=== PATIENT | female | born 1930 | race Caucasian/White ===

== ENCOUNTER → 2017-02-26 | Outpatient (CLI) | payer OTHER ==
[~2017-02-26] MED LIST: ASPCH81; LISI20TA PO; SITA100T3 PO; [UNRECOGNIZED DRUG - CODE] PO; insulin
--- NOTE | 2017-02-26 13:04 | DIAGNOSTIC IMAGING REPORT ---
CHEST 2 VIEWS ROUTINE CLINICAL HISTORY: 86 years-old Female presenting with WHEEZING. TECHNIQUE: PA and lateral views of the chest were obtained. COMPARISON: 08/31/2013. FINDINGS: Atherosclerosis of aortic arch. Cardiac silhouette top normal in size, unchanged. Mild hyperinflation, unchanged. Prominence of lung markings similar to prior exam. Bronchial wall thickening suggested. No new focal infiltrate. No pleural effusion or pneumothorax. Degenerative changes of the thoracic spine. Upper abdomen normal. IMPRESSION: 1. Hyperinflation and bronchial wall thickening could suggest air trapping with reactive airways disease. No focal infiltrate to suggest pneumonia. The appearance is overall similar to prior exam. Electronically signed by: Fredo Virgen M.D. 02/26/2017 1:03 PM Dictated Date/Time: 02/26/2017 1:01 PM
== END | disposition home or self-care (01) ==
LOC: C.RAD 12:41
PROVIDERS: ATTEND Physician Assistant
DX: R06.2 Wheezing (principal)

== ENCOUNTER 2019-08-07 18:33 | Inpatient (IN) ==
--- NOTE | 2019-08-07 18:54 | Emergency Department Note ---
ED Provider Note NAME: YANELY GALAN AGE: 89 SEX: F : 1930 ARRIVES VIA: Walk-In INFORMANT: Patient and daughter ED PROVIDER(S): Soham Aragon DO CHIEF COMPLAINT: Shortness of breath HPI: Patient is an 89-year-old female who presents the ER for fall. Patient was sitting getting washed by her and fell backwards from a seated position in the bathtub. She hit her head. She denies any loss consciousness. She does take Eliquis. She has not missed any doses. Patient complains of a persistent headache. She also has left hip pain. She complains of right shoulder and lower back pain both of which have been present prior to the fall. She has been placed on baclofen recently for that. She denies any weakness or numbness in the arms or legs. No dysuria urgency or frequency. She does admit to a clear p roductive cough which is been persistent since April. This is been unchanged. ROS: See above HPI for pertinent positives & negatives. A total of 10 systems reviewed and were otherwise negative. PAST MEDICAL HISTORY:See Below PAST SURGICAL HISTORY:See Below FAMILY HISTORY:See Below SOCIAL HISTORY:See Below HOME MEDICATIONS:See Below ALLERGIES:See Below VITALS:See Below PHYSICAL EXAMINATION: GENERAL: Sitting up in bed, ill-appearing, talking in full sentences EYE EXAM: normal conjunctiva. OROPHARYNX: no exudate, no erythema, lips, buccal mucosa, and tongue normal and mucous membranes are moist NECK: supple, no nuchal rigidity, no adenopathy, non-tender LUNGS: Wheezing bilaterally. Normal chest wall mechanics HEART: no murmurs, S1 normal and S2 normal ABDOMEN: abdomen soft, non-tender, normo-active bowel sounds, no masses, no rebound or guarding. BACK: Back is symmetrical on inspection and there is no deformity, mild tenderness in the lower lumbar. PELVIS: Stable to compression anteriorly and posteriorly SKIN: no rashes and no bruising UPPER EXTREMITIES: Pain with range of motion of right shoulder. Otherwise full active and passive range of motion of right elbow wrist as well as left shoulder elbow and wrist. LOWER EXTREMITIES: Full active and passive range of motion of all extremities with minimal tenderness in the left hip. NEURO EXAM: Normal sensorium, cranial nerves II-XII grossly intact, normal speech, no gross weakness of arms, no gross weakness of legs. MEDICAL DECISION MAKING: Patient is an 89-year-old female with a past medical history of A. segundo on a NOAC with CKD and diabetes that presents the ER for mechanical fall. She also admits to some shortness of breath. IV was established blood work was obtained. She was found to be hypoxic at 83%. She was placed on 4 L oxygen mask. This came up to 98%. Labs show a leukocytosis of 25,000. No significant anemia. Do favor the leukocytosis secondary to recent steroids which were started. She was also recently started on baclofen due to right shoulder pain and lower back pa in. INR at 1.2. BMP with a creatinine 1.5. Glucose was elevated 216 favor consistent with steroids. Bilirubin LFTs was unremarkable. Troponin was elevated 0.08 and I favor this is related to the hypoxia. proBNP was elevated at 8000. Influenza was unremarkable. EKG was nondiagnostic. Chest x-ray with pulmonary edema and a pleural effusion. She was given IV Lasix. Question mobile infiltrate per radiology and consequently she was given a dose of Levaquin. CT head and cervical spine showed no acute pathologies. CT of the cervical spine did show a possible nerve sheath tumor. I did order x-rays of lumbar spine and shoulder although this pain has been there for several days and was not related to the fall. Did discuss with [place] hospitalist for further evaluation. Triage Nursing notes reviewed. Prior medical records reviewed Vital Signs: reviewed and remarkable for hypoxia Differential diagnosis: Differential diagnoses include major intracranial, cervical, spinal, thoracic, abdominal, pelvic and neurologic injury. Fracture, contusion, sprain, strain, laceration, abrasions included as well. Differential diagnoses includes but is not limited to pneumonia, bronchitis, COPD/Asthma exacerbation, pneumothorax, pulmonary embolism, congestive heart failure, acute coronary syndrome ER treatment provided: See below Diagnostics interpreted by me: ECG: Sinus rhythm rate of 66 Normal axis No PVCs Normal QTC Cardiac Monitoring: Sinus rhythm rate of 71 Laboratory studies: As stated above and show below. Imaging studies: Chest x-ray portable AP upright one view shows pulmonary edema. No pneumothorax. X-ray of the pelvis and left hip shows no fractures or dislocation. CT of the head and cervical spine show no acute fractures or bleeds. Does she have a nerve sheath tumor. Consultation(s): Discussed with Dr. Shaikh ED COURSE: Procedures: none Critical Care: I have personally spent 35 minutes of critical care time in the direct management of this patient. This includes bedside care, interpretation of diagnostic studies, and testing, discussion with consultants, patient, and family members, and other required patient management activities. This 35 min utes is in excess of all separately billable procedures. Impression & Plan Hypoxia, CHF (congestive heart failure), Elevated troponin Past Med/Surg History Social History Communication Ability: Effective Visual Impairment: Partially Limited Beliefs That Will Affect Care: None marital status: Current Living Situation: Family Feels Safe at Home: Yes Smoking Status: Never smoker Number of Years Since Quit: 15 ; Hx Alcohol Use: No Hx Substance Use: No Results & Data Vital Signs Vital Signs - 24 hr 08/07/19 18:34 08/07/19 18:48 08/07/19 20:33 Temperature 36.7 C Temperature Source Oral Pulse Rate 68 Pulse Rate [Apical] 65 Pulse Rhythm Regular Pulse Rhythm [Apical] Regular Pulse Strength Normal Pulse Strength [Apical] Normal Respiratory Rate 24 22 Respiratory Effort / Characteristics Non-Labored Spontaneous Non-Labored Spontaneous Respiratory Depth Normal Normal Respiratory Pattern Regular Regular Blood Pressure 137/62 Blood Pressure [Right Arm] 138/63 Blood Pressure Mean 87 Blood Pressure Mean [Right Arm] 88 Blood Pressure Position [Right Arm] Lying Pulse Oximetry 85 L 83 L 93 Oxygen Delivery Method Room Air Room Air Oxymask Nasal Cannula Oxygen Flow Rate 0 3 Sepsis Recent Fever Within 48 Hours No Sepsis Action Taken by Nursing No Action Required Oxygen Flow Rate - Titration 7 Pulse Oximetry Post Tiitration 98 Laboratory Data Result diagrams: 08/07/19 19:01 08/07/19 19:01 Lab Results 08/07/19 08/07/19 08/07/19 Range/Units 19:01 19:01 19:01 WBC 25.11 H (4.8-10.8) K/uL RBC 4.66 (4.2-5.4) M/uL Hgb 11.8 L (12.0-16.0) g/dL Hct 37.8 (37-47) % MCV 81.1 (80-100) fL MCH 25.3 (25-34) pg MCHC 31.2 L (32-36) g/dL RDW Std Deviation 53.5 H (36.4-46.3) fL RDW Coeff of Mohit 18.2 H (11.5-14.5) % Plt Count 293 (130-400) K/uL MPV 9.4 (7.4-10.4) fL Immature Gran % (Auto) 0.5 % Neut % (Auto) 85.6 % Lymph % (Auto) 7.2 % Wilkinson % (Auto) 6.7 % Eos % (Auto) 0.0 % Baso % (Auto) 0.0 % Immature Gran # (Auto) 0.13 H (0.00-0.02) K/uL Neut # (Auto) 21.48 H (1.4-6.5) K/uL Lymph # (Auto) 1.82 (1.2-3.4) K/uL Wilkinson # (Auto) 1.67 H (0.11-0.59) K/uL Eos # (Auto) 0.00 (0-0.5) K/uL Baso # (Auto) 0.01 (0-0.2) K/uL Anisocytosis Present PT 12.8 H (9.0-12.0) Seconds INR 1.2 H (0.9-1.1) APTT 29.8 (21.0-31.0) Seconds PTT Ratio 1.1 Sodium 136 (136-145) mmol/L Potassium 4.3 (3.5-5.1) mmol/L Chloride 103 (98-107) mmol/L Carbon Dioxide 26 (21-32) mmol/L Anion Gap 7.0 (3-11) BUN 42 H (7-18) mg/dl Creatinine 1.58 H (0.6-1.2) mg/dl Est Cr Clr Drug Dosing Not Reportable Est GFR ( Amer) 33.7 Est GFR (Non-Af Amer) 29.1 BUN/Creatinine Ratio 26.8 H (10-20) Glucose 216 H (70-99) mg/dl Calcium 10.3 H (8.5-10.1) mg/dl Total Bilirubin 0.5 (0.2-1) mg/dl AST 89 H (15-37) U/L ALT 54 (12-78) U/L Alkaline Phosphatase 175 H (45-117) U/L Troponin I 0.082 H* (0-0.045) ng/ml NT-Pro-B Natriuret Pep 8153 H (0-1800) pg/ml Total Protein 7.4 (6.4-8.2) gm/dl Albumin 2.8 L (3.4-5.0) gm/dl Globulin 4.6 H (2.5-4.0) gm/dl Albumin/Globulin Ratio 0.6 L (0.9-2) Influenza Type A (PCR) (Neg) Influenza Type B (PCR) (Neg) 08/07/19 Range/Units 19:01 WBC (4.8-10.8) K/uL RBC (4.2-5.4) M/uL Hgb (12.0-16.0) g/dL Hct (37-47) % MCV (80-100) fL MCH (25-34) pg MCHC (32-36) g/dL RDW Std Deviation (36.4-46.3) fL RDW Coeff of Mohit (11.5-14.5) % Plt Count (130-400) K/uL MPV (7.4-10.4) fL Immature Gran % (Auto) % Neut % (Auto) % Lymph % (Auto) % Wilkinson % (Auto) % Eos % (Auto) % Baso % (Auto) % Immature Gran # (Auto) (0.00-0.02) K/uL Neut # (Auto) (1.4-6.5) K/uL Lymph # (Auto) (1.2-3.4) K/uL Wilkinson # (Auto) (0.11-0.59) K/uL Eos # (Auto) (0-0.5) K/uL Baso # (Auto) (0-0.2) K/uL Anisocytosis PT (9.0-12.0) Seconds INR (0.9-1.1) APTT (21.0-31.0) Seconds PTT Ratio Sodium (136-145) mmol/L Potassium (3.5-5.1) mmol/L Chloride (98-107) mmol/L Carbon Dioxide (21-32) mmol/L Anion Gap (3-11) BUN (7-18) mg/dl Creatinine (0.6-1.2) mg/dl Est Cr Clr Drug Dosing Est GFR ( Amer) Est GFR (Non-Af Amer) BUN/Creatinine Ratio (10-20) Glucose (70-99) mg/dl Calcium (8.5-10.1) mg/dl Total Bilirubin (0.2-1) mg/dl AST (15-37) U/L ALT (12-78) U/L Alkaline Phosphatase (45-117) U/L Troponin I (0-0.045) ng/ml NT-Pro-B Natriuret Pep (0-1800) pg/ml Total Protein (6.4-8.2) gm/dl Albumin (3.4-5.0) gm/dl Globulin (2.5-4.0) gm/dl Albumin/Globulin Ratio (0.9-2) Influenza Type A (PCR) Neg for Influ A (Neg) Influenza Type B (PCR) Neg for Influ B (Neg) Administered Medications Levofloxacin/Dextrose (Levaquin/D5w) 750 mg in 150 mls @ 100 mls/hr IV Q24H SUSSY Stop: 09/18/19 20:29 Last Admin: 08/07/19 21:02 Dose: 100 mls/hr Documented by: [id number] Discontinued Medications Furosemide (Lasix) 40 mg IV NOW STA Stop: 08/07/19 19:54 Last Admin: 08/07/19 20:15 Dose: 40 mg Documented by: [id number] Discharge Plan Visit Data Chief Complaint: Fall Stated Complaint: FALL, HEAD INJURY, MUSCLES SPASMS IN BACK ED Provider: Soham Aragon Discharge Problem: Hypoxia, CHF (congestive heart failure), Elevated troponin Forms Stand Alone Forms: My [facility] Prescriptions Prescriptions: No Action furosemide [Lasix] 20 mg tablet 20 mg PO DAILY PRN (Reason: Edema) Qty: 30 RF: 0 amiodarone [Pacerone] 200 mg tablet 200 mg PO HS Qty: 90 RF: 0 prednisone 10 mg tablet 10 mg PO BID RF: 0 baclofen 10 mg tablet 5 mg PO TID RF: 0 omeprazole 20 mg Capsule,Delayed Release(Dr/Ec) 40 mg PO QAM RF: 0 loratadine [Claritin] 10 mg tablet 10 mg PO DAILY RF: 0 lisinopril [Zestril] 10 mg tablet 10 mg PO DAILY RF: 0 Lantus Solostar U-100 Insulin 100 unit/mL (3 mL) insulin pen 35 unit subcut HS RF: 0 cholecalciferol (vitamin D3) [D3-50 Cholecalciferol] 50,000 unit Capsule 50,000 unit PO WK RF: 0 latanoprost [Xalatan] 0.005 % Drops 0 drp OPB HS RF: 0 dorzolamide-timolol [Cosopt] 22.3-6.8 mg/mL Drops 0 drp OPB BID RF: 0 Eliquis 5 mg Tablet 5 mg PO BID Qty: 60 RF: 5 metoprolol tartrate 25 mg Tablet 25 mg PO BID Qty: 60 RF: 5 Discharge Problem: CHF (congestive heart failure) Qualifiers: Heart failure type: unspecified Heart failure chronicity: unspecified Qualified Code(s): I50.9 - Heart failure, unspecified
[2019-08-07 19:11] LABS: Hematocrit (blood only) 37.8 % (37-47); Hemoglobin 11.8 g/dL (12.0-16.0); Mean Corpuscular Hemoglobin 25.3 pg (25-34); Mean Corpuscular Hgb Conc 31.2 g/dL (32-36); Mean Corpuscular Volume 81.1 fL (80-100); Mean Platelet Volume 9.4 fL (7.4-10.4); Platelet Count 293 K/uL (130-400); RDW Coefficient of Variation 18.2 % (11.5-14.5); RDW Standard Deviation 53.5 fL (36.4-46.3); Red Blood Count 4.66 M/uL (4.2-5.4); White Blood Count 25.11 K/uL (4.8-10.8)
[2019-08-07 19:21] LABS: INR 1.2 (0.9-1.1); Partial Thromboplastin Ratio 1.1; Partial Thromboplastin Time 29.8 Seconds (21.0-31.0); Prothrombin Time 12.8 Seconds (9.0-12.0)
--- NOTE | 2019-08-07 19:25 | XRay Report ---
XR hip LT 2V w pelvis HISTORY: 89 years-old Female l hip[ pain acute left-sided hip pain status post fall COMPARISON: None TECHNIQUE: AP view the pelvis with 2 views of the left hip FINDINGS: Demineralized appearance the bones limits the study. At least moderate degenerative changes of the SI joints with moderate bilateral femoral acetabular joint osteoarthritis. No acute fracture, dislocati on or avascular necrosis. Linear lucency oriented along the long axis of the greater trochanter is bradley ggestive of probable trabecular markings. Vascular calcifications are noted. Moderate fecal retention . IMPRESSION: No definite acute fracture or dislocation. ACT 112: Negative or not required by law. The above report was generated using voice recognition software. It may contain grammatical, syntax o r spelling errors. Electronically signed by: Daniel Church M.D. 08/07/2019 7:24 PM
--- NOTE | 2019-08-07 19:27 | XRay Report ---
XR chest 1V portable HISTORY: 89 years-old Female Dyspnea acute shortness of breath COMPARISON: Chest radiograph 04/02/2018 TECHNIQUE: Portable AP view of the chest FINDINGS: Cardiac silhouette is enlarged. Dense mitral annular calcifications. Calcified plaque the thoracic ao rta. Pulmonary vascular congestion. Bilateral mixed interstitial and alveolar opacities. Possible tra ce pleural effusions. Ill-defined opacity of the right upper lung overlies the anterior right first r ib. Degenerative changes of the shoulders and spine. IMPRESSION: 1. Cardiomegaly with pulmonary vascular congestion and mixed interstitial and alveolar opacities sugg estive of pulmonary edema. Superimposed pneumonitis would be difficult to exclude. 2. Trace pleural effusions. 3. Ill-defined opacity of the right upper lung may be secondary to summation density with overlap of adjacent right first rib or focal airspace consolidation. Attention at follow-up recommended. ACT 112: Negative or not required by law. The above report was generated using voice recognition software. It may contain grammatical, syntax o r spelling errors. Electronically signed by: Daniel Church M.D. 08/07/2019 7:26 PM
[2019-08-07 19:50] LABS: Anisocytosis Present; Basophils # (auto) 0.01 K/uL (0-0.2); Immature Granulocytes # (auto) 0.13 K/uL (0.00-0.02); Immature Granulocytes % (auto) 0.5 %; Lymphocytes # (auto) 1.82 K/uL (1.2-3.4); Lymphocytes % (auto) 7.2 %; Monocytes # (auto) 1.67 K/uL (0.11-0.59); Monocytes % (auto) 6.7 %; Neutrophils # (auto) 21.48 K/uL (1.4-6.5); Neutrophils % (auto) 85.6 %
[2019-08-07 19:52] LABS: Alanine Aminotransferase 54 U/L (12-78); Albumin Level 2.8 gm/dl (3.4-5.0); Aspartate Aminotransferase 89 U/L (15-37); BUN Creatinine Ratio 26.8 (10-20); Blood Urea Nitrogen 42 mg/dl (7-18); Calcium 10.3 mg/dl (8.5-10.1); Carbon Dioxide 26 mmol/L (21-32); Chloride 103 mmol/L (98-107); Est GFR (African American) 33.7; Est GFR (Non-African American) 29.1; Glucose 216 mg/dl (70-99); Potassium 4.3 mmol/L (3.5-5.1); Sodium 136 mmol/L (136-145)
[2019-08-07] MEDS ORDERED: FUROSEMIDE 40 MG/4 ML VIAL IV STA (19:53)
[2019-08-07 20:03] LABS: Albumin Globulin Ratio 0.6 (0.9-2); Alkaline Phosphatase 175 U/L (45-117); Bilirubin,Total 0.5 mg/dl (0.2-1); Globulin 4.6 gm/dl (2.5-4.0); NT Pro B Type Natriuretic Pept 8153 pg/ml (0-1800); Total Protein 7.4 gm/dl (6.4-8.2); Troponin I 0.082 ng/ml (0-0.045)
[2019-08-07 20:16] LABS: Influenza A virus by PCR Neg for Influ A (Neg); Influenza B virus by PCR Neg for Influ B (Neg)
--- NOTE | 2019-08-07 20:24 | CT Scan Report ---
CT head/brain wo con CLINICAL HISTORY: 89 years-old Female with fall. Acute head injury status post fall TECHNIQUE: Multiple axial CT images of the head were obtained without contrast. A dose lowering tech nique was utilized adhering to the principles of ALARA. CT DOSE: 1094.94 mGy.cm COMPARISON: CT cervical spine of same day. FINDINGS: Motion degraded exam. A portion of the study was repeated. No acute intracranial hemorrhage, midline shift, intracranial mass, hydrocephalus, territorial ischemia or abnormal extra-axial collection. Age -related involutional changes with ex vacuo ventriculomegaly. 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 4 mm calcification of the mid carisa, Hounsfield unit of 80. Cerebr al vascular calcifications noted. The calvarium is intact. Prior bilateral lens replacement. The paranasal sinuses, mastoid air cells, and middle ear cavities are clear. IMPRESSION: Motion degraded exam without acute intracranial abnormality or calvarial fracture. ACT 112: Negative or not required by law. The above report was generated using voice recognition software. It may contain grammatical, syntax o r spelling errors. Electronically signed by: Daniel Church M.D. 08/07/2019 8:23 PM
[2019-08-07] MEDS ORDERED: LEVOFLOXACIN/D5W 750 MG/150 ML BAG IV SCH (20:30)
--- NOTE | 2019-08-07 20:45 | CT Scan Report ---
CT cervical spine wo con CLINICAL HISTORY: 89 years-old Female with fall. Acute head and neck injury status post fall COMPARISON: Head CT of same day TECHNIQUE: Multiple axial CT images of the cervical spine were obtained without contrast. A dose low ering technique was utilized adhering to the principles of ALARA. FINDINGS: Demineralized appearance of the bones. Moderate disc space narrowing at C6-C7 with spondylitic spurri ng and posterior disc osteophyte complex. Mild multilevel disc space narrowing with mild to moderate spondylitic spurring and facet arthrosis. Severe degenerative changes at C1-C2 with partially calcifi ed pannus posterior to the odontoid process. 3 mm anterolisthesis C7 on T1 is likely secondary to john g-standing facet arthrosis. No acute fracture or subluxation. Evaluation of the central canal and linda roforamina is better assessed by MRI. Multilevel foraminal narrowing is noted. No definite high-grade central canal stenosis. Convex right curvature. No acute cervical spine fracture or subluxation. Ill -defined soft tissue prominence within the distribution of the left vertebral foramen at C5 measures up to approximately 1.4 x 1.4 x 1.2 cm (image 55 series 6 and image 21 of series 701) with bony lysis of the adjacent bony neuroforamen, left transverse process and left lateral aspect of the vertebral body. Study is mildly motion degraded. Lung apices are clear without pneumothorax. No prevertebral soft tissue swelling. Calcified plaque of the carotid bulbs. IMPRESSION: 1. No acute cervical spine fracture or subluxation. 2. Demineralized appearance of the bones with multilevel degenerative changes as above. 3. Focal soft tissue lesion measuring up to 1.4 cm is noted within the left vertebral foramen at the level of C5. Additionally, there is bony lysis of the adjacent neuroforamen, transverse process and l eft lateral aspect of the vertebral body. These findings may be secondary to a nerve sheath tumor dana ng other etiologies. Correlation with a follow-up nonemergent MRI of the cervical spine with and with out contrast is recommended to further evaluate. ACT 112: Negative or not required by law. The above report was generated using voice recognition software. It may contain grammatical, syntax o r spelling errors. Electronically signed by: Daniel Church M.D. 08/07/2019 8:43 PM
--- NOTE | 2019-08-07 21:15 | XRay Report ---
XR lumbar spine 2-3V HISTORY: 89 years-old Female lower back pain acute low back pain status post fall COMPARISON: None TECHNIQUE: 3 views of the lumbar spine FINDINGS: Demineralized appearance of the bones. 5 nonrib-bearing lumbar type vertebral segments. 6 mm anteroli sthesis L4 on L5, likely secondary to long-standing facet arthropathy. Severe multilevel facet arthro sis. Severe L5-S1 disc space narrowing. Mild to moderate multilevel disc space narrowing with moderat e spondylitic spurring. No acute fracture identified. Mild superior endplate depression of L5 is like ly chronic. Calcified plaque of the abdominal aorta. Moderate fecal retention. Surgical clips of the right upper quadrant abdomen suggest cholecystectomy. IMPRESSION: 1. No acute fracture identified. 2. Grade 1 anterolisthesis L4 on L5 is likely secondary to long-standing facet arthrosis. 3. Degenerative changes above. ACT 112: Negative or not required by law. The above report was generated using voice recognition software. It may contain grammatical, syntax o r spelling errors. Electronically signed by: Daniel Church M.D. 08/07/2019 9:14 PM
--- NOTE | 2019-08-07 21:17 | XRay Report ---
XR shoulder RT min 2V routine HISTORY: 89 years-old Female r shoulder pain acute right-sided shoulder pain status post fall COMPARISON: Chest radiograph of same day TECHNIQUE: 3 views of the right shoulder FINDINGS: Demineralized appearance of the bones. And mild to moderate glenohumeral and AC joint osteoarthritis. Limited exam secondary to positioning. No acute fracture or dislocation identified. Multifocal opaci ties throughout the light lung redemonstrated. Calcific plaque of the aorta. Cardiomegaly. IMPRESSION: No acute fracture or dislocation. ACT 112: Negative or not required by law. The above report was generated using voice recognition software. It may contain grammatical, syntax o r spelling errors. Electronically signed by: Daniel Church M.D. 08/07/2019 9:16 PM
--- NOTE | 2019-08-07 22:42 | History & Physical Report ---
Date of Service August 07, 2019 Assessment & Plan (1) Altered mental state: Multifactorial- Underlying dementia CHF exacerbation Pneumonia involving right lung Non-STEMI type II. Present on Admission?: Yes (2) CHF (congestive heart failure): Atrial fibrillation with RVR/elevated troponin/CHF- The patient will be admitted to telemetry for serial cardiac enzymes, serial EKG's, cardiac rhythm monitoring. Continue amiodarone and apixaban. She was given Lasix 40 mg IV x1 in the ED. Placed on albumin with furosemide 40 mg IV twice daily Present on Admission?: Yes (3) Elevated troponin: See above Present on Admission?: Yes (4) Pneumonia: Ceftriaxone 2 g IV daily. Levofloxacin 500 mg IV daily. Pulmicort Respules 0.5 mg inhaled twice daily Oxygen via oxygen mask, titrate to keep pulse ox around 94%. Methylprednisolone 40 mg IV every 8 hours, will service stress testing as well Present on Admission?: Yes (5) Chronic kidney disease, stage III (moderate): Acute injury on chronic kidney disease- Creatinine 1.58 upon admission, with baseline 1.31-1.60. Follow labs serially Present on Admission?: Yes (6) DM w/o complication type II: Hold Lantus. Placed on Accu-Cheks before meals and at bedtime/every 6 hours with NovoLog coverage per scale Present on Admission?: Yes (7) Mass of soft tissue of neck: Discussed with her daughter that when she is well enough able to lay flat for long interval time, an MRI can be completed as suggested by radiology Present on Admission?: Yes History of Present Illness Chief Complaint: The patient is brought to the emergency department due to a fall backwards into the bathtub from a seated position, as her was helping her bathe. Primary Care Provider: CHANELL Barrera The patient is a 89-year-old female with a past medical history including CKD stage III, diabetes mellitus type 2, morbid obesity, hypomagnesemia, LVH, hyperlipidemia, A. fib with RVR, CHF and UTI. She presented to the emergency department for assessment post fall from a seated position while on the edge of the bathtub after her was helping her bathe. She has prior to this had pain in her right shoulder, which appears to be worse since the fall, and has s ome mild neck pain. Work-up in the emergency department included CT of head which was negative, x- rays of hip and pelvis which were negative, and a CT of the cervical spine which suggested a 1.4 cm soft tissue lesion at the C5 level that was considered a possible nerve sheath tumor. Work-up in the ED was consistent with a pneumonia, CHF and NSTEMI. Of note, the patient, due to her underlying dementia and present medical condition, was not able to contribute significantly to HPI or review of systems, and her daughter who is with her in ED, served as a primary historian. Allergies Allergy/AdvReac Type Severity Reaction Status Date / Time No Known Drug Allergies Allergy Verified 08/07/19 20:07 Home Medications Home Medications Medication Instructions Recorded Confirmed Type cholecalciferol (vitamin D3) 50,000 unit PO WK 01/28/18 08/07/19 History [D3-50 Cholecalciferol] dorzolamide-timolol [Cosopt] 0 drp OPB BID 01/28/18 08/07/19 History latanoprost [Xalatan] 0 drp OPB HS 01/28/18 08/07/19 History apixaban [Eliquis] 5 mg PO BID #60 tab 01/30/18 08/07/19 Rx metoprolol tartrate 25 mg PO BID #60 tab 01/30/18 08/07/19 Rx amiodarone 200 mg tablet 200 mg PO HS #90 tab 02/27/19 08/07/19 History furosemide 20 mg tablet 20 mg PO DAILY PRN #30 tab 02/27/19 08/07/19 History baclofen 5 mg PO TID 08/07/19 08/07/19 History insulin glargine [Lantus Solostar 35 unit SUBCUT HS 08/07/19 08/07/19 History U-100 Insulin] lisinopril [Zestril] 10 mg PO DAILY 08/07/19 08/07/19 History loratadine [Claritin] 10 mg PO DAILY 08/07/19 08/07/19 History omeprazole 40 mg PO QAM 08/07/19 08/07/19 History prednisone 10 mg PO BID 08/07/19 08/07/19 History Past Med/Surg History Social History Preferred Language: Nigerian Communication Ability: Effective Visual Impairment: Partially Limited Pot Lining Supervisor Required: No Beliefs That Will Affect Care: None marital status: Current Living Situation: Spouse Other Information That Helps Us Care for You: No Feels Safe at Home: Yes Safety Concerns: Feels Safe At This Time Smoking Status: Former smoker Smoking End Date: 15 years ago ; Number of Years Since Quit: 15 ; Second Hand Exposure: No ; Hx Alcohol Use: No Hx Substance Use: No Review of Systems Review of Systems: Unobtainable due to cognitive status and Unobtainable due to reduced consciousness Physical Exam Physical Exam: The patient is lethargic and disoriented, well developed and well nourished, normocephalic and atraumatic, lying in bed and in mild acute distress. HEENT--PERRL, EOMI, mucous membranes and oropharynx dry. Neck--supple. No JVD. No bruits. Thyroid normal, trachea midline, no adenopathy. Heart--normal S1 and S2. No murmurs, rubs or gallops. Lungs--coarse breath sounds and wheezes, right greater than left. Mild r espiratory distress, no accessory muscle use. Abdomen--normal bowel sounds and soft. Nontender. Nondistended. Extremities--no cyanosis or clubbing. No edema. Dermatologic--mildly xerotic. Neurologic--cranial nerves II through XII grossly intact. Rheumatologic: Limited exam Psychiatric--lethargic and disoriented Results & Data Vital Signs (Past 12 Hours) Vital Signs Temp Pulse Pulse Resp BP BP Pulse Ox 08/07/19 22:00 61 22 131/77 95 08/07/19 20:33 65 22 138/63 93 08/07/19 18:48 83 L 08/07/19 18:34 98.1 F 68 24 137/62 85 L Laboratory Results Laboratory Results WBC 25.11 K/uL (4.8-10.8) H 08/07/19 19:01 RBC 4.66 M/uL (4.2-5.4) 08/07/19 19:01 Hgb 11.8 g/dL (12.0-16.0) L 08/07/19 19:01 Hct 37.8 % (37-47) 08/07/19 19: MCV 81.1 fL (80-100) 08/07/19 19:01 MCH 25.3 pg (25-34) 08/07/19 19: MCHC 31.2 g/dL (32-36) L 08/07/19: RDW Std Deviation 53.5 fL (36.4-46.3) H 08/07/19: RDW Coeff of Mohit 18.2 % (11.5-14.5) H 08/07/19: Plt Count 293 K/uL (130-400) 08/07/19: MPV 9.4 fL (7.4-10.4) 08/07/19: Immature Gran % (Auto) 0.5 % 08/07/19: Neut % (Auto) 85.6 % 08/07/19: Lymph % (Auto) 7.2 % 08/07/19: Gosper % (Auto) 6.7 % 08/07/19: Eos % (Auto) 0.0 % 08/07/19: Baso % (Auto) 0.0 % 08/07/19: Immature Gran # (Auto) 0.13 K/uL (0.00-0.02) H 08/07/19: Neut # (Auto) 21.48 K/uL (1.4-6.5) H 08/07/19: Lymph # (Auto) 1.82 K/uL (1.2-3.4) 08/07/19: Gosper # (Auto) 1.67 K/uL (0.11-0.59) H 08/07/19: Eos # (Auto) 0.00 K/uL (0-0.5) 08/07/19: Baso # (Auto) 0.01 K/uL (0-0.2) 08/07/19: Anisocytosis Present 08/07/19: PT 12.8 Seconds (9.0-12.0) H 08/07/19: INR 1.2 (0.9-1.1) H 08/07/19: APTT 29.8 Seconds (21.0-31.0) 08/07/19: PTT Ratio 1.1 03/20/20 19:01 Sodium 136 mmol/L (136-145) 08/07/19 19:01 Potassium 4.3 mmol/L (3.5-5.1) 08/07/19 19: Chloride 103 mmol/L (98-107) 08/07/19 19: Carbon Dioxide 26 mmol/L (21-32) 08/07/19 19: Anion Gap 7.0 (3-11) 08/07/19 19: BUN 42 mg/dl (7-18) H 08/07/19 19: Creatinine 1.58 mg/dl (0.6-1.2) H 08/07/19 19: Est Cr Clr Drug Dosing Not Reportable 08/07/19 19: Est GFR ( Amer) 33.7 08/07/19 19: Est GFR (Non-Af Amer) 29.1 08/07/19 19: BUN/Creatinine Ratio 26.8 (10-20) H 08/07/19 19: Glucose 216 mg/dl (70-99) H 08/07/19 19: Calcium 10.3 mg/dl (8.5-10.1) H 08/07/19 19: Total Bilirubin 0.5 mg/dl (0.2-1) 08/07/19 19: AST 89 U/L (15-37) H 08/07/19 19: ALT 54 U/L (12-78) 08/07/19 19: Alkaline Phosphatase 175 U/L (45-117) H 08/07/19 19: Troponin I 0.154 ng/ml (0-0.045) H* 08/07/19 23:26 NT-Pro-B Natriuret Pep 8153 pg/ml (0-1800) H 08/07/19 19: Total Protein 7.4 gm/dl (6.4-8.2) 08/07/19 19: Albumin 2.8 gm/dl (3.4-5.0) L 08/07/19 19: Globulin 4.6 gm/dl (2.5-4.0) H 08/07/19 19:01 Albumin/Globulin Ratio 0.6 (0.9-2) L 08/07/19 19:01 Influenza Type A (PCR) Neg for Influ A (Neg) 08/07/19 19:01 Influenza Type B (PCR) Neg for Influ B (Neg) 08/07/19 19:01 Diagnostic Findings [facility] [place] [phone] XRay Report Patient: YANELY GALAN AAdmit Date: 08/07/19 MR#: [id number]: [address] Acct ID:[id number]: Date: 1930[facility] Zip: [place] [address] Age: 89Location: ED Sex: F Room/Bed: Att Phy:Diagnosis: FALL, HEAD INJURY, MUSCLES SPASMS IN BACK Paige Phy: Amy Aviles CRNPService Date: 08/07/19 Fam Phy:Interpreting Phy: Anand Church Admit Phy: Ordering Phy: Soham Aragon, cc: ~ XR hip LT 2V w pelvis HISTORY: 89 years-old Female l hip[ pain acute left-sided hip pain status post fall COMPARISON: None TECHNIQUE: AP view the pelvis with 2 views of the left hip FINDINGS: Demineralized appearance the bones limits the study. At least moderate degenerative changes of the SI joints with moderate bilateral femoral acetabular joint osteoarthritis. No acute fracture, dislocation or avascular necrosis. Linear lucency oriented along the long axis of the greater trochanter is suggestive of probable trabecular markings. Vascular calcifications are noted. Moderate fecal retention. IMPRESSION: No definite acute fracture or dislocation. ACT 112: Negative or not required by law. The above report was generated using voice recognition software. It may contain grammatical, syntax or spelling errors. Electronically signed by: Daniel Church M.D. 08/07/2019 7:24 PM Dictated: 08/07/191920 Transcribed: 08/07/191920 [phone] Scan Report Patient: YANELY GALAN AAdmit Date: 08/07/19 MR#: [id number]: [address] Acct ID:[id number]: Date: 1930[facility] Zip: [place] [address] Age: 89Location: ED Sex: F Room/Bed: Att Phy:Diagnosis: FALL, HEAD INJURY, MUSCLES SPASMS IN BACK Paige Phy: Amy Aviles CRNPService Date: 08/07/19 Fam Phy:Interpreting Phy: Anand Church Admit Phy: Ordering Phy: Soham Aragon DO cc: ~ CT cervical spine wo con CLINICAL HISTORY: 89 years-old Female with fall. Acute head and neck injury status post fall COMPARISON: Head CT of same day TECHNIQUE: Multiple axial CT images of the cervical spine were obtained without contrast. A dose lowering technique was utilized adhering to the principles of ALARA. FINDINGS: Demineralized appearance of the bones. Moderate disc space narrowing at C6-C7 with spondylitic spurring and posterior disc osteophyte complex. Mild multilevel disc space narrowing with mild to moderate spondylitic spurring and facet arthrosis. Severe degenerative changes at C1-C2 with partially calcified pannus posterior to the odontoid process. 3 mm anterolisthesis C7 on T1 is likely secondary to long-standing facet arthrosis. No acute fracture or subluxation. Evaluation of the central canal and neuroforamina is better assessed by MRI. Multilevel foraminal narrowing is noted. No definite high-grade central canal stenosis. Convex right curvature. No acute cervical spine fracture or subluxation. Ill-defined soft tissue prominence within the distribution of the left vertebral foramen at C5 measures up to approximately 1.4 x 1.4 x 1.2 cm (image 55 series 6 and image 21 of series 701) with bony lysis of the adjacent bony neuroforamen, left transverse process and left lateral aspect of the vertebral body. Study is mildly motion degraded. Lung apices are clear without pneumothorax. No prevertebral soft tissue swelling. Calcified plaque of the carotid bulbs. IMPRESSION: 1. No acute cervical spine fracture or subluxation. 2. Demineralized appearance of the bones with multilevel degenerative changes as above. 3. Focal soft tissue lesion measuring up to 1.4 cm is noted within the left vertebral foramen at the level of C5. Additionally, there is bony lysis of the adjacent neuroforamen, transverse process and left lateral aspect of the vertebral body. These findings may be secondary to a nerve sheath tumor among other etiologies. Correlation with a follow-up nonemergent MRI of the cervical spine with and without contrast is recommended to further evaluate. ACT 112: Negative or not required by law. The above report was generated using voice recognition software. It may contain grammatical, syntax or spelling errors. Electronically signed by: Daniel Church M.D. 08/07/2019 8:43 PM Dictated: 08/07/192022 Transcribed: 08/07/192022 [facility], [place] [phone] CT Scan Report Patient: YANELY GALAN AAdmit Date: 08/07/19 MR#: [id number]: [address] Acct ID:[id number]: Date: 1930[facility] Zip: [place] [address] Age: 89Location: ED Sex: F Room/Bed: Att Phy:Diagnosis: FALL, HEAD INJURY, MUSCLES SPASMS IN BACK Paige Phy: Amy Aviles CRNPService Date: 08/07/19 Fam Phy:Interpreting Phy: Anand Church Admit Phy: Ordering Phy: Soham Aragon DO cc: ~ CT cervical spine wo con CLINICAL HISTORY: 89 years-old Female with fall. Acute head and neck injury status post fall COMPARISON: Head CT of same day TECHNIQUE: Multiple axial CT images of the cervical spine were obtained without contrast. A dose lowering technique was utilized adhering to the principles of ALARA. FINDINGS: Demineralized appearance of the bones. Moderate disc space narrowing at C6-C7 with spondylitic spurring and posterior disc osteophyte complex. Mild multilevel disc space narrowing with mild to moderate spondylitic spurring and facet arthrosis. Severe degenerative changes at C1-C2 with partially calcified pannus posterior to the odontoid process. 3 mm anterolisthesis C7 on T1 is likely secondary to long-standing facet arthrosis. No acute fracture or subluxation. Evaluation of the central canal and neuroforamina is better assessed by MRI. Multilevel foraminal narrowing is noted. No definite high-grade central canal stenosis. Convex right curvature. No acute cervical spine fracture or subluxation. Ill-defined soft tissue prominence within the distribution of the left vertebral foramen at C5 measures up to approximately 1.4 x 1.4 x 1.2 cm (image 55 series 6 and image 21 of series 701) with bony lysis of the adjacent bony neuroforamen, left transverse process and left lateral aspect of the vertebral body. Study is mildly motion degraded. Lung apices are clear without pneumothorax. No prevertebral soft tissue swelling. Calcified plaque of the carotid bulbs. IMPRESSION: 1. No acute cervical spine fracture or subluxation. 2. Demineralized appearance of the bones with multilevel degenerative changes as above. 3. Focal soft tissue lesion measuring up to 1.4 cm is noted within the left vertebral foramen at the level of C5. Additionally, there is bony lysis of the adjacent neuroforamen, transverse process and left lateral aspect of the vertebral body. These findings may be secondary to a nerve sheath tumor among other etiologies. Correlation with a follow-up nonemergent MRI of the cervical spine with and without contrast is recommended to further evaluate. ACT 112: Negative or not required by law. The above report was generated using voice recognition software. It may contain grammatical, syntax or spelling errors. Electronically signed by: Daniel Church M.D. 08/07/2019 8:43 PM Dictated: 08/07/192022 Transcribed: 08/07/192022 [place], [place] [phone] XRay Report Patient: YANELY GALAN AAdmit Date: 08/07/19 MR#: [id number]: 1951 [address] Acct ID:[id number]: Date: [address] [place] [address] Zip: [place] [address] Age: 89Location: ED Sex: F Room/Bed: Att Phy:Diagnosis: FALL, HEAD INJURY, MUSCLES SPASMS IN BACK Paige Phy: Amy Aviles CRNPService Date: 08/07/19 Fam Phy:Interpreting Phy: Anand Church Admit Phy: Ordering Phy: Soham Aragon, cc: ~ XR lumbar spine 2-3V HISTORY: 89 years-old Female lower back pain acute low back pain status post fall COMPARISON: None TECHNIQUE: 3 views of the lumbar spine FINDINGS: Demineralized appearance of the bones. 5 nonrib-bearing lumbar type vertebral segments. 6 mm anterolisthesis L4 on L5, likely secondary to long-standing facet arthropathy. Severe multilevel facet arthrosis. Severe L5-S1 disc space narrowing. Mild to moderate multilevel disc space narrowing with moderate spondylitic spurring. No acute fracture identified. Mild superior endplate depression of L5 is likely chronic. Calcified plaque of the abdominal aorta. Moderate fecal retention. Surgical clips of the right upper quadrant abdomen suggest cholecystectomy. IMPRESSION: 1. No acute fracture identified. 2. Grade 1 anterolisthesis L4 on L5 is likely secondary to long-standing facet arthrosis. 3. Degenerative changes above. ACT 112: Negative or not required by law. The above report was generated using voice recognition software. It may contain grammatical, syntax or spelling errors. Electronically signed by: Daniel Church M.D. 08/07/2019 9:14 PM Dictated: 08/07/192111 Transcribed: 08/07/192111 [facility] [phone] XRay Report Patient: YANELY GALAN AAdmit Date: 08/07/19 MR#: [id number]: [address] Acct ID:[id number]: Date: 1930[facility] Zip: [place] [address] Age: 89Location: ED Sex: F Room/Bed: Att Phy:Diagnosis: FALL, HEAD INJURY, MUSCLES SPASMS IN BACK Paige Phy: Amy Aviles CRNPService Date: 08/07/19 Fam Phy:Interpreting Phy: Anand Church Admit Phy: Ordering Phy: Soham Aragon, cc: ~ XR shoulder RT min 2V routine HISTORY: 89 years-old Female r shoulder pain acute right-sided shoulder pain status post fall COMPARISON: Chest radiograph of same day TECHNIQUE: 3 views of the right shoulder FINDINGS: Demineralized appearance of the bones. And mild to moderate glenohumeral and AC joint osteoarthritis. Limited exam secondary to positioning. No acute fracture or dislocation identified. Multifocal opacities throughout the light lung redemonstrated. Calcific plaque of the aorta. Cardiomegaly. IMPRESSION: No acute fracture or dislocation. ACT 112: Negative or not required by law. The above report was generated using voice recognition software. It may contain grammatical, syntax or spelling errors. Electronically signed by: Daniel Church M.D. 08/07/2019 9:16 PM Dictated: 08/07/192113 Transcribed: 08/07/192113 [place], [place] [phone] XRay Report Patient: YANELY GALAN AAdmit Date: 08/07/19 MR#: [id number]: 1951 [address] Acct ID:[id number]: Date: 1930[facility] Zip: [place] [address] Age: 89Location: ED Sex: F Room/Bed: Att Phy:Diagnosis: FALL, HEAD INJURY, MUSCLES SPASMS IN BACK Paige Phy: Amy Aviles CRNPService Date: 08/07/19 Fam Phy:Interpreting Phy: Anand Church Admit Phy: Ordering Phy: Soham Aragon DO cc: ~ XR chest 1V portable HISTORY: 89 years-old Female Dyspnea acute shortness of breath COMPARISON: Chest radiograph 04/02/2018 TECHNIQUE: Portable AP view of the chest FINDINGS: Cardiac silhouette is enlarged. Dense mitral annular calcifications. Calcified plaque the thoracic aorta. Pulmonary vascular congestion. Bilateral mixed interstitial and alveolar opacities. Possible trace pleural effusions. Ill- defined opacity of the right upper lung overlies the anterior right first rib. Degenerative changes of the shoulders and spine. IMPRESSION: 1. Cardiomegaly with pulmonary vascular congestion and mixed interstitial and alveolar opacities suggestive of pulmonary edema. Superimposed pneumonitis would be difficult to exclude. 2. Trace pleural effusions. 3. Ill-defined opacity of the right upper lung may be secondary to summation density with overlap of adjacent right first rib or focal airspace consolidation. Attention at follow-up recommended. ACT 112: Negative or not required by law. The above report was generated using voice recognition software. It may contain grammatical, syntax or spelling errors. Electronically signed by: Daniel Church M.D. 08/07/2019 7:26 PM Dictated: 08/07/191923 Transcribed: 08/07/191923 Code Status & VTE Plan Code Status DNR/DNI. Discussed with patient in the presence of her daughter. VTE Prophylaxis Plan VTE Prophylaxis will be ordered: Yes PG Care Time/CCT Total # of Minutes Spent Total Time Spent with Patient: Total time spent is greater than 50% in coordination of care (as documented) at patient's floor/unit and/or counseling patient: Coding Level of Care Code 63711 Initial Inpt Care Lvl 3 Diagnoses Altered mental state R41.82 CHF (congestive heart failure) I50.9 Heart failure chronicity: unspecified Heart failure type: unspecified Elevated troponin R79.89 Pneumonia J18.9 Chronic kidney disease, stage III (moderate) N18.3 DM w/o complication type II E11.9 Mass of soft tissue of neck R22.1 (1) CHF (congestive heart failure) Heart failure chronicity: unspecified Heart failure type: unspecified Qualified Code(s): I50.9 - Heart failure, unspecified
[2019-08-07] MEDS ORDERED: GLUCOSE 10 TABS/TUBE PO PRN (23:20)
[2019-08-07] MEDS ORDERED: DEXTROSE 50% 50 ML SYRINGE IV PRN (23:20)
[2019-08-07] MEDS ORDERED: CARBOHYDRATES FOR HYPOGLYCEMIA PO PRN (23:20)
[2019-08-07] MEDS ORDERED: LEVOFLOXACIN/D5W 500 MG/100 ML BAG IV SCH (23:20)
[2019-08-07] MEDS ORDERED: MAGNESIUM HYDROXIDE SUSP 30 ML UDC PO PRN (23:20)
[2019-08-07] MEDS ORDERED: ONDANSETRON INJ 2 MG/ML 2 ML VIAL IV PRN (23:20)
[2019-08-07] MEDS ORDERED: GLUCOSE 40% GEL 15 GM TUBE PO PRN (23:20)
[2019-08-07] MEDS ORDERED: ALUMINUM/MAGNESIUM SUSP 30 ML UDC PO PRN (23:20)
[2019-08-07] MEDS ORDERED: ACETAMINOPHEN 325 MG TAB PO PRN (23:20)
[2019-08-07] MEDS ORDERED: GLUCAGON FOR INJ 1 MG VIAL SQ PRN (23:20)
[2019-08-07] MEDS ORDERED: predniSONE 10 MG TABLET PO SCH (23:20)
[2019-08-08] MEDS ORDERED: cefTRIAXone SODIUM 2,000 MG in DEXTROSE 5% 50 ML IV SCH
[2019-08-08] MEDS: DORZOLAMIDE/TIMOLOL 22.3/6.8MG/ML 10 ML BTL OPB SCH ×3 (01:14→21:20)
[2019-08-08] MEDS: METOPROLOL TARTRATE 25 MG TAB PO SCH ×3 (01:14→21:20)
[2019-08-08] MEDS: APIXABAN 5 MG TABLET PO SCH ×3 (01:14→21:20)
[2019-08-08] MEDS ORDERED: LEVOFLOXACIN CONSULT ACTIVE PRN (04:02)
[2019-08-08] MEDS ORDERED: LEVOFLOXACIN/D5W 750 MG/150 ML BAG IV SCH (04:15)
[2019-08-08 07:44] LABS: Basophils # (auto) 0.01 K/uL (0-0.2); Basophils % (auto) 0.1 %; Hematocrit (blood only) 37.7 % (37-47); Hemoglobin 11.7 g/dL (12.0-16.0); Immature Granulocytes # (auto) 0.08 K/uL (0.00-0.02); Immature Granulocytes % (auto) 0.4 %; Lymphocytes # (auto) 1.35 K/uL (1.2-3.4); Lymphocytes % (auto) 7.3 %; Mean Corpuscular Hemoglobin 25.3 pg (25-34); Mean Corpuscular Volume 81.4 fL (80-100); Mean Platelet Volume 9.6 fL (7.4-10.4); Monocytes # (auto) 0.98 K/uL (0.11-0.59); Monocytes % (auto) 5.3 %; Neutrophils # (auto) 16.04 K/uL (1.4-6.5); Neutrophils % (auto) 86.9 %; Platelet Count 265 K/uL (130-400); RDW Coefficient of Variation 18.4 % (11.5-14.5); RDW Standard Deviation 54.3 fL (36.4-46.3); Red Blood Count 4.63 M/uL (4.2-5.4); White Blood Count 18.46 K/uL (4.8-10.8)
[2019-08-08] MEDS: lisinopriL 10 MG TAB PO SCH (07:55)
[2019-08-08] MEDS: PANTOprazole 40 MG TAB PO SCH (07:55)
[2019-08-08] MEDS: INSULIN ASPART 100 UNITS/ML 3 ML PEN SC SCH ×4 (07:55→21:20)
[2019-08-08] MEDS: LORATADINE 10 MG TAB PO SCH (07:56)
[2019-08-08] MEDS: BACLOFEN 10 MG TAB PO SCH ×2 (07:56→13:18)
[2019-08-08 07:57] LABS: Estimated Average Glucose 131 mg/dl; Hemoglobin A1C 6.2 % (4.5-5.6)
[2019-08-08 07:59] LABS: INR 1.3 (0.9-1.1); Prothrombin Time 13.7 Seconds (9.0-12.0)
[2019-08-08] MEDS: BUDESONIDE 0.5 MG/2 ML VIAL (PULMICORT) NEB SCH ×2 (08:02→19:07)
[2019-08-08 08:11] LABS: Albumin Level 2.5 gm/dl (3.4-5.0); BUN Creatinine Ratio 32.6 (10-20); Calcium 10.1 mg/dl (8.5-10.1); Creatinine Clr Calc Pharmacy 28.6 ml/min; Est GFR (African American) 41.6; Est GFR (Non-African American) 35.9; Magnesium 1.8 mg/dl (1.8-2.4); Potassium 3.9 mmol/L (3.5-5.1)
[2019-08-08 08:12] LABS: Phosphorus 3.4 mg/dl (2.5-4.9)
[2019-08-08] MEDS ORDERED: ALBUMIN 25% 50 ML with FUROSEMIDE 40 MG IV SCH ×2 (09:00)
--- NOTE | 2019-08-08 10:18 | XCELERA ---
[id number] \\[email or web address]\[id number]_[id number]}___[id number]
--- NOTE | 2019-08-08 10:47 | Electrocardiogram Report ---
Test Reason : Blood Pressure : / mmHG Vent. Rate : 066 BPM Atrial Rate : 066 BPM P-R Int : 152 ms QRS Dur : 080 ms QT Int : 454 ms P-R-T Axes : 050 005 040 degrees QTc Int : 475 ms Normal sinus rhythm Normal ECG When compared with ECG of 30-JAN-2018 06:15, Premature atrial complexes are no longer Present Confirmed by Bib Alfred ([id number] on 08/08/2019 10:47:05 AM Referred By: REFERRED SELF Confirmed By:Reynaldo Alfred
--- NOTE | 2019-08-08 13:39 | Hospitalist Progress Note ---
Date of Service August 08, 2019 Assessment & Plan (1) Pneumonia: CXR on 08/06 showed ill-defined opacity of the right upper lung may be secondary to summation density with overlap of adjacent right first rib or focal airspace consolidation. - Continue ceftriaxone & levofloxacin - 2vCXR to see if this is actually pneumonia. - Continue Pulmicort Respules 0.5 mg inhaled twice daily - Continue steroids (2) CHF (congestive heart failure): CXR on 08/06 showed pulmonary vascular congestion and mixed interstitial and alveolar opacities suggestive of pulmonary edema. Echo on 08/07 showed EF 55-60% with mild LVH. - Continue amiodarone and apixaban. - On Lasix; will likely taper as soon as able (3) Altered mental state: Multifactorial with underlying dementia and possible sundowning. - Monitor (4) Elevated troponin: Troponin noted to be 0.08 on admission & gradual upward trend to 0.18. EKGs do not show acute ischemic changes. - Trend (5) Atrial fibrillation: EKG on 08/08 showed sinus rhythm. - Continue amiodarone, beta-bethel - Continue anticoagulation with apixaban (6) Hypertension: BP today is 135/70. - Continue beta-bethel & ACEi (7) Chronic kidney disease, stage III (moderate): Acute injury on chronic kidney disease. Creatinine 1.58 upon admission, with baseline 1.31-1.60. - Back to baseline on 08/07. - Monitor with diuresis (8) DM w/o complication type II: A1c was 6.2% this admission. - Hold Lantus - Sliding scale insulin (9) Mass of soft tissue of neck: Discussed with her daughter that when she is well enough able to lay flat for long interval time, an MRI can be completed as suggested by radiology. - Will discuss with family (10) DVT prophylaxis: Heparin 5000 units Q12h Admission and Anticipated Discharge Date Admission Date: August 07, 2019 Subjective Feels like she is overall doing quite well. Denies any shortness of breath to me. Minimal cough. Reports no fevers/chills, chest pain, shortness of breath, abdominal pain, nausea, or vomiting. Physical Exam Constitutional: WD/WN, vitals as above Eyes: EOM intact bilaterally; no conjunctival abnormality ENMT: external ear and nose normal, oropharynx normal Neck: trachea midline, no thyromegaly normal visual inspection Respiratory: normal respiratory effort, lungs clear to auscultation no respiratory distress Cardiovascular: RRR, no murmur, no edema Gastrointestinal (Abdomen): Inspection/Auscultation: abdomen normal to inspection; abdomen not distended Musculoskeletal: no cyanosis or clubbing, extremities motor strength 5/5 Skin: no rashes, warm and dry Neurologic: moves all extremities and awake Psychiatric: Orientation: alert, oriented to person and cooperative Results & Data ([facility]) Vital Signs (Past 12 Hours) Vital Signs Temp Pulse Resp BP BP Pulse Ox 08/08/19 10:56 36.3 C L 69 20 136/69 95 08/08/19 08:03 76 18 95 08/08/19 07:17 36.7 C 69 18 133/74 94 08/08/19 04:12 36.6 C 62 18 156/81 H 96 PG Care Time/CCT Total # of Minutes Spent Total Time Spent with Patient: Total time spent is greater than 50% in coordination of care (as documented) at patient's floor/unit and/or counseling patient: Coding Level of Care Code 77035 Subseq Hosp Care Lvl 3 Diagnoses Pneumonia J18.9 CHF (congestive heart failure) I50.9 Heart failure chronicity: unspecified Heart failure type: unspecified Altered mental state R41.82 Elevated troponin R79.89 Atrial fibrillation I48.91 Hypertension I10 Chronic kidney disease, stage III (moderate) N18.3 DM 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
--- NOTE | 2019-08-08 14:51 | XRay Report ---
XR chest 2V PA/lateral HISTORY: Possible pneumonia; congestive heart failure COMPARISON: Chest 08/07/2019. FINDINGS: Slight progression of the diffuse interstitial thickening consistent with pulmonary edema. The heart remains mildly enlarged. Patchy right basilar airspace opacity persists. Bilateral hilar en largement is again noted. No pneumothorax. No pleural effusions. A 2.6 cm right upper lobe nodular de nsity. This is also progressed. IMPRESSION: 1. Slight progression of the diffuse interstitial thickening suggestive of pulmonary edema. 2. A 2.6 cm right upper lobe nodular density which has progressed. This could represent a developing pneumonia or pulmonary lesion. 3. Right hilar enlargement may represent lymphadenopathy or perihilar lesion. 4. Right basilar airspace opacity suggestive of a pneumonia. ACT 112: Negative or not required by law. Electronically signed by: Riley Walker M.D. 08/08/2019 2:50 PM
[2019-08-08] MEDS ORDERED: GADOBUTROL 30ML VIAL IV PRN (16:24)
--- NOTE | 2019-08-08 16:52 | Magnetic Resonance Report ---
CERVICAL SPINE MRI WITH AND WITHOUT CONTRAST HISTORY: Abnormal CT. Nerve sheath tumor TECHNIQUE: Multiplanar multisequence MRI of the cervical spine was performed both before and after th e use of intravenous contrast. COMPARISON STUDY: Cervical spine CT 08/07/2019. FINDINGS: No fracture or subluxation. Mild disc space narrowing at C5-C6 and moderate disc space narr owing at C6-C7 with small endplate osteophytes. There is motion artifact throughout the mid cervical spine. The cervical spinal cord demonstrates normal signal intensity. The visualized posterior fossa is unremarkable. Prevertebral soft tissues and the C1-C2 interval are intact. There is again noted a 1.4 cm ill-defined T2 hyperintense, T1 hypointense enhancing lesion centered at the left C5 transvers e process. This appears to posteriorly displace the vertebral artery and may partially extend into th e left C4-C5 neural foramen. This is difficult to evaluate due to the motion artifact at this level. C2-C3: No significant central canal or neural foraminal narrowing. C3-C4: No significant central canal or neural foraminal narrowing. C4-C5: No significant central canal narrowing. There is mild right neural foraminal narrowing. The le ft neural foramen appears to be partially occupied by the suspected mass. C5-C6: Small focal central disc protrusion which demonstrates superior subligamentous migration. This abuts and slightly deforms the anterior cord. This measures approximate 5 mm. Moderate bilateral linda ral foraminal narrowing. C6-C7: No significant central canal narrowing. There is severe right and moderate left neural foramin al narrowing. Small broad-based posterior disc osteophyte complex. C7-T1: No significant central canal or neural foraminal narrowing. IMPRESSION: 1. Redemonstration of the 1.4 cm lesion centered within the left C5 transverse process. This is not w ell visualized due to the motion artifact at this location. This is nonspecific and could represent a metastatic focus or peripheral nerve sheath tumor. 2. Small focal central disc protrusion at C5-C6 which abuts and slightly deforms the anterior cord. N o significant cord edema. 3. Bilateral neural foraminal narrowing as described above. ACT 112: Negative or not required by law. Electronically signed by: Riley Walker M.D. 08/08/2019 4:51 PM
[2019-08-08] MEDS ORDERED: INSULIN GLARGINE SOLOSTAR 100 UNITS/ML 3 ML PEN SQ SCH ×2 (21:00)
[2019-08-08] MEDS ORDERED: AZITHROMYCIN 250 MG in DEXTROSE 5% 250 ML IV SCH (21:00)
[2019-08-08] MEDS ORDERED: AMIODARONE 200 MG TAB PO SCH (21:00)
[2019-08-08] MEDS ORDERED: LATANOPROST 0.005% OP SOLN 2.5 ML BTL OPB SCH (21:00)
[2019-08-08] MEDS: BACLOFEN 10 MG TAB PO PRN (21:26)
[2019-08-09] MEDS ORDERED: cefTRIAXone SODIUM 1,000 MG in DEXTROSE 5% 50 ML IV SCH (01:00)
[2019-08-09] MEDS ORDERED: cefTRIAXone SODIUM 2,000 MG in DEXTROSE 5% 50 ML IV SCH (01:00)
[2019-08-09] MEDS ORDERED: METOPROLOL TARTRATE 1 MG/ML VIAL IV STA ×3 (01:28→01:48)
[2019-08-09] MEDS ORDERED: METOPROLOL TARTRATE 1 MG/ML VIAL IV ONE (01:30)
[2019-08-09] MEDS ORDERED: ALBUT/IPRATROP 3MG/0.5MG NEB 3 ML VIAL NEB PRN (01:37)
[2019-08-09] MEDS: BACLOFEN 10 MG TAB PO PRN ×2 (05:46→08:12)
[2019-08-09 06:54] LABS: Basophils # (auto) 0.01 K/uL (0-0.2); Basophils % (auto) 0.1 %; Eosinophils # (auto) 0.05 K/uL (0-0.5); Eosinophils % (auto) 0.3 %; Hematocrit (blood only) 38.5 % (37-47); Hemoglobin 11.8 g/dL (12.0-16.0); Immature Granulocytes # (auto) 0.08 K/uL (0.00-0.02); Immature Granulocytes % (auto) 0.5 %; Lymphocytes # (auto) 1.33 K/uL (1.2-3.4); Lymphocytes % (auto) 8.9 %; Mean Corpuscular Hemoglobin 25.1 pg (25-34); Mean Corpuscular Hgb Conc 30.6 g/dL (32-36); Mean Corpuscular Volume 81.7 fL (80-100); Mean Platelet Volume 9.8 fL (7.4-10.4); Monocytes % (auto) 8.7 %; Neutrophils # (auto) 12.23 K/uL (1.4-6.5); Neutrophils % (auto) 81.5 %; Platelet Count 285 K/uL (130-400); RDW Coefficient of Variation 18.4 % (11.5-14.5); Red Blood Count 4.71 M/uL (4.2-5.4)
[2019-08-09] MEDS: BUDESONIDE 0.5 MG/2 ML VIAL (PULMICORT) NEB SCH (07:23)
[2019-08-09 07:24] LABS: BUN Creatinine Ratio 35.4 (10-20); Calcium 9.9 mg/dl (8.5-10.1); Creatinine Clr Calc Pharmacy 28.8 ml/min; Est GFR (African American) 41.9; Est GFR (Non-African American) 36.2; Magnesium 1.9 mg/dl (1.8-2.4); Potassium 3.2 mmol/L (3.5-5.1)
[2019-08-09] MEDS: INSULIN ASPART 100 UNITS/ML 3 ML PEN SC SCH ×3 (08:12→16:28)
[2019-08-09] MEDS: lisinopriL 10 MG TAB PO SCH (08:13)
[2019-08-09] MEDS: APIXABAN 5 MG TABLET PO SCH (08:13)
[2019-08-09] MEDS: LORATADINE 10 MG TAB PO SCH (08:13)
[2019-08-09] MEDS: METOPROLOL TARTRATE 25 MG TAB PO SCH (08:13)
[2019-08-09] MEDS: PANTOprazole 40 MG TAB PO SCH (08:13)
[2019-08-09] MEDS: DORZOLAMIDE/TIMOLOL 22.3/6.8MG/ML 10 ML BTL OPB SCH (08:16)
[2019-08-09] MEDS ORDERED: FUROSEMIDE 40 MG in SYRINGE 0 ML IV SCH (09:00)
[2019-08-09] MEDS ORDERED: PIPERACILL/TAZOBAC CONSULT ACTIVE PRN (09:20)
[2019-08-09] MEDS ORDERED: VANCOMYCIN CONSULT ACTIVE PRN (09:20)
[2019-08-09] MEDS ORDERED: PIPERACILLIN/TAZOBACTAM 3.375 GM in DEXTROSE 5% 100 ML IV ONE (09:45)
--- NOTE | 2019-08-09 10:10 | CT Scan Report ---
CT chest wo con CT DOSE: 496.07 mGy.cm CLINICAL HISTORY: 89 years-old Female with Respiratory distress; worsening pneumonia suspecte. Acute respiratory distress with possible pneumonia TECHNIQUE: Multiaxial CT images of the chest were performed without contrast. A dose lowering techni que was utilized adhering to the principles of ALARA. COMPARISON: Chest radiographs 08/08/2019, chest CT 09/22/2007 FINDINGS: Limited exam without the use of IV contrast. Heterogeneous thyroid. Pathologically enlarged mediastin al and hilar lymph nodes. Subcarinal lymph nodes measure up to 2.8 x 1.9 cm. Paratracheal lymph nodes measure up to 2.4 x 1.8 cm. Right hilar mass with spiculated ill-defined margins measures 5.7 x 6.6 x 7.2 cm. There is loss of the adjacent fat plane of the mediastinum suggestive of mediastinal invasi on. This results in narrowing of the bronchus intermedius and right lower lobe main bronchi with effa cement of the right upper lobe bronchus. Mucous plugging of the segmental and subsegmental bronchi of the right lower lobe. The large right hilar mass also encases the right main pulmonary artery. Right upper lobe 3.3 x 2.7 x 3.0 cm mass on image 84 series 4. Multifocal irregular groundglass and consol idative opacities are present within a multilobar distribution bilaterally. Intralobular septal thick ening is also present bilaterally, most pronounced in the right upper lobe. Subpleural 9 x 7 mm nodul e of the lingula abutting the mediastinal pleura, image 126 series 4 is new from comparison. Addition al scattered irregular nodular opacities are present within the bilateral lung bases. Limited evaluat ion secondary to respiratory motion artifact. Moderate emphysema. Bronchial calcifications are noted bilaterally. Trace right pleural effusion. Cholecystectomy. Cyst of the superior pole right kidney, 2.9 cm. Nonspecific thickening of the bilate ral adrenal glands suggest remote adenomata. There are several ill-defined lesions of the liver measu ring up to 3.9 cm the right hepatic lobe. Soft tissues are unremarkable. 2.4 cm expansile lytic lesio n involves the anterior aspect of the right third rib, image 108 series 4. Possible acute or subacute nondisplaced fracture of the right anterior costochondral junction of the eighth rib, image 269 seri es 4. IMPRESSION: 1. Large irregular and spiculated soft tissue mass of the right hilum measures 5.7 x 6.6 x 7.2 cm and demonstrates mediastinal invasion compatible with primary bronchogenic carcinoma. The mass narrows t he bronchus intermedius and right lower lobe bronchus with effacement of the right upper lobe bronchu s and demonstrates mediastinal invasion. 2. Bilateral pulmonary metastasis with 3.3 cm mass of the right upper lobe. 3. Patchy bilateral groundglass and consolidative opacities are suggestive of a superimposed infectio us or inflammatory pneumonitis. 4. Intralobular septal thickening most pronounced in the right upper lobe may reflect asymmetric pulm onary edema versus lymphangitic carcinomatosis. 5. Trace right pleural effusion. 6. Pathologic mediastinal and hilar adenopathy suggestive of lymphatic metastasis. 7. Multifocal hepatic metastasis with lytic expansile lesion of the anterior right third rib suggesti ve of osseous metastasis. ACT 112: Negative or not required by law. Electronically signed by: Danile Church M.D. 08/09/2019 10:08 AM
[2019-08-09] MEDS ORDERED: VANCOMYCIN HCL 1,750 MG in SODIUM CHLORIDE 0.9% 500 ML IV SCH (10:30)
[2019-08-09] MEDS ORDERED: LORazepam 0.5 MG TAB SL PRN (11:01)
[2019-08-09] MEDS ORDERED: ATROPINE SULFATE 1% OP SOLN 2 ML BTL SL PRN (11:01)
[2019-08-09] MEDS: MoRPHine SULFATE 5 MG/0.25 ML UDP PO PRN ×3 (11:46→17:52)
--- NOTE | 2019-08-09 14:25 | Discharge Summary ---
Date of Service August 09, 2019 Admission HPI Per Admitting Provider The patient is a 89-year-old female with a past medical history including CKD stage III, diabetes mellitus type 2, morbid obesity, hypomagnesemia, LVH, hyperlipidemia, A. fib with RVR, CHF and UTI. She presented to the emergency department for assessment post fall from a seated position while on the edge of the bathtub after her was helping her bathe. She has prior to this had pain in her right shoulder, which appears to be worse since the fall, and has some mild neck pain. Work-up in the emergency department included CT of head which was negative, x- rays of hip and pelvis which were negative, and a CT of the cervical spine which suggested a 1.4 cm soft tissue lesion at the C5 level that was considered a possible nerve sheath tumor. Work-up in the ED was consistent with a pneumonia, CHF and NSTEMI. Of note, the patient, due to her underlying dementia and present medical condition, was not able to contribute significantly to HPI or review of systems, and her daughter who is with her in ED, served as a primary historian. Principal Diagnosis Stage IV lung cancer Discharge Exam Constitutional WD/WN, vitals as above Eyes EOM intact bilaterally; no conjunctival abnormality ENMT external ear and nose normal, oropharynx normal Neck trachea midline, no thyromegaly normal visual inspection Respiratory normal respiratory effort, lungs clear to auscultation no respiratory distress Cardiovascular RRR, no murmur, no edema Gastrointestinal (Abdomen) Inspection/Auscultation: abdomen normal to inspection; abdomen not distended Musculoskeletal no cyanosis or clubbing, extremities motor strength 5/5 Skin no rashes, warm and dry Neurologic moves all extremities and awake Psychiatric Orientation: alert, oriented to person and cooperative Discharge Data Allergies Allergy/AdvReac Type Severity Reaction Status Date / Time No Known Drug Allergies Allergy Verified 08/07/19 20:07 Consultations 08/07/19 20:27 ED Decision to Admit Stat 08/07/19 23:20 Consult Case Management - Discharge Planning Routine 08/09/19 09:22 Consult Cardiology Routine Ordered Studies 08/07/19 19:31 CT cervical spine wo con Stat CT head/brain wo con Stat 08/08/19 16:02 MR cervical spine wo/w con Routine 08/09/19 09:20 CT chest wo con Stat Hospital Course (1) Lung cancer: CT chest showed Stage IV lung cancer. - Discharged home on hospice with the family Total Time Total Time Spent Total Time Spent (In Minutes): 75 Discharge Plan Discharge Items Patient Disposition: Hospice - Home Reason For Visit: PNEUMONIA, CHF, NSTEMI Discharge Diagnosis: Presumed stage IV lung cancer Activity: Resume your previous activity Non-emergency contact: Primary Care Provider Call non-emergency contact if: your symptoms worsen, your pain is not controlled and your pain is worsening Follow-up/Referrals: Amy Aviles CRNP [Primary Care Provider] - (per Dr. Solo no follow-up appts needed due to patient condition.) Diet: Regular Addtl Attending Provider Instructions: Ms. Avendano, I am very sorry for your diagnosis. I hope that we have given you and your family everything we can for you to be comfortable at home and be able to spend time with your loved ones. Please connect with hospice services as they may be able to give you and your family additional support at this difficult time. Until you get connected with hospice, if you or your family have any questions, please do not hesitate to reach out to Enriqu[facility]field. [facility] care, Juan Solo Pending Studies at Discharge: No Stand-Alone Forms: My vLine Medications and DC Order Prescriptions: New morphine concentrate 100 mg/5 mL (20 mg/mL) solution 5 mg PO Q3H PRN (Reason: Pain or shortness of breath) Qty: 30 RF: 0 lorazepam 0.5 mg tablet 0.5 mg PO TID PRN (Reason: anxiety) Qty: 20 RF: 0 atropine 1 % drops 3 drops BUCCAL Q6H PRN (Reason: secretions) Qty: 5 RF: 0 lorazepam 2 mg/mL concentrate 0.5 mg PO TID PRN (Reason: anxiety) Qty: 30 RF: 0 Continued furosemide [Lasix] 20 mg tablet 20 mg PO DAILY PRN (Reason: Edema) Qty: 30 RF: 0 amiodarone [Pacerone] 200 mg tablet 200 mg PO HS Qty: 90 RF: 0 omeprazole 20 mg Capsule,Delayed Release(Dr/Ec) 40 mg PO QAM RF: 0 loratadine [Claritin] 10 mg tablet 10 mg PO DAILY RF: 0 metoprolol tartrate 25 mg Tablet 25 mg PO BID Qty: 60 RF: 5 Changed baclofen 10 mg tablet 5 mg PO TID PRN (Reason: Muscle Spasm) Qty: 0 RF: 0 Lantus Solostar U-100 Insulin 100 unit/mL (3 mL) insulin pen 25 unit subcut HS Qty: 0 RF: 0 Discontinued prednisone 10 mg tablet 10 mg PO BID RF: 0 lisinopril [Zestril] 10 mg tablet 10 mg PO DAILY RF: 0 cholecalciferol (vitamin D3) [D3-50 Cholecalciferol] 50,000 unit Capsule 50,000 unit PO WK RF: 0 latanoprost [Xalatan] 0.005 % Drops 0 drp OPB HS RF: 0 dorzolamide-timolol [Cosopt] 22.3-6.8 mg/mL Drops 0 drp OPB BID RF: 0 Eliquis 5 mg Tablet 5 mg PO BID Qty: 60 RF: 5 Discharge Orders: Discharge Order (Routine); Ordered 08/09/19 Ordered By: Juan Solo Admission Data Admit Date/Time: 08/07/19 21:53 Attending Provider: Jaun Solo Admit Provider: Mustapha Ortiz Primary Care Provider: Amy Aviles Other Providers: Juan Solo ; Herminio Alfred Coding Level of Care Code D/C Day Management >30 mins Diagnoses Lung cancer C34.90
[2019-08-09] MEDS ORDERED: MoRPHine SULFATE 4 MG/ML 1 ML CARP\\VIAL IV STA (15:02)
[2019-08-09] MEDS ORDERED: PIPERACILLIN/TAZOBACTAM 3.375 GM in DEXTROSE 5% 100 ML IV SCH (16:00)
--- NOTE | 2019-08-09 18:28 | Electrocardiogram Report ---
Test Reason : Blood Pressure : / mmHG Vent. Rate : 118 BPM Atrial Rate : 236 BPM P-R Int : 000 ms QRS Dur : 086 ms QT Int : 370 ms P-R-T Axes : 226 017 165 degrees QTc Int : 518 ms Atrial flutter with 2:1 A-V conduction Marked ST abnormality, possible inferior subendocardial injury Abnormal ECG When compared with ECG of 08-AUG-2019 07:21, Atrial flutter has replaced Sinus rhythm Vent. rate has increased BY [address] now depressed in Inferior leads ST now depressed in Anterolateral leads Confirmed by Bib Alfred ([id number]) on 08/09/2019 6:28:19 PM Referred By: REFERRED SELF Confirmed By:Reynaldo Alfred
--- NOTE | 2019-08-09 18:30 | Electrocardiogram Report ---
Test Reason : Blood Pressure : / mmHG Vent. Rate : 069 BPM Atrial Rate : 069 BPM P-R Int : 140 ms QRS Dur : 088 ms QT Int : 412 ms P-R-T Axes : 062 016 060 degrees QTc Int : 441 ms Normal sinus rhythm Normal ECG When compared with ECG of 09-AUG-2019 01:24, (unconfirmed) Sinus rhythm has replaced Atrial flutter Vent. rate has decreased BY [address] no longer depressed in Inferior leads ST no longer depressed in Lateral leads Confirmed by Bib Alfred ([id number] on 08/09/2019 6:29:49 PM Referred By: REFERRED SELF Confirmed By:Reynaldo Alfred
[2019-08-09] MEDS ORDERED: LEVOFLOXACIN/D5W 750 MG/150 ML BAG IV SCH (21:00)
[2019-08-10] MEDS ORDERED: VANCOMYCIN HCL 750 MG in SODIUM CHLORIDE 0.9% 250 ML IV SCH (10:00)
[2019-08-12] MEDS ORDERED: VANCOMYCIN TROUGH ONE (09:30)
== END 2019-08-09 18:10 | disposition hospice, home (50) | DRG 180 ==
LOC: ED 18:33 → 2S 21:53 → SUATTDRO 21:53 → 2S 22:46